=== PATIENT | female | born 1955 | race Caucasian/White ===

== ENCOUNTER 2020-11-16 14:31 | Inpatient (IN) | payer MEDICARE, OTHER ==
[~2020-11-16] VITALS: Ht 157.5 cm; Wt 88.0 kg
[~2020-11-16 14:31] MED LIST: ALBUTEROL2.5 MG/3 M NEB; ALDACTONE25 MG PO; ASPIR 8181 MG PO; COREG 3.125M3.125 MG PO; DIAMOX 250 MG250 MG PO; INVEGA6 MG PO; LASIX20 MG PO; LEVOTHYROXINE75 MCG PO; LISINOPRIL5 MG PO
[2020-11-16 15:28] LABS: HEMOGLOBIN 12.8 gm/dl (12.3-15.3); RED BLOOD COUNT 4.34 M/UL (4.00-5.10); WHITE BLOOD COUNT 8.1 K/UL (4.5-11.0)
[2020-11-16 16:51] LABS: BUN/CREATININE RATIO 29 (0-10)
[2020-11-16] MEDS ORDERED: PROAIR DIGIHAL90 MCG INH (17:58)
[2020-11-16] MEDS ORDERED: BUMETANIDE1 MG PO (17:59)
[2020-11-16] MEDS ORDERED: ELIQUIS5 MG PO (18:00)
[2020-11-16] MEDS ORDERED: DIVALPROEX SOD125 M1 PO (18:00)
[2020-11-16] MEDS ORDERED: ENTRESTO 24 MG1 EACH PO (18:01)
[2020-11-16] MEDS ORDERED: NOVOLOG 10100 UNITS/ INJ (18:02)
[2020-11-16] MEDS ORDERED: QUETIAPINE FUM100 MG PO (18:03)
[2020-11-16] MEDS ORDERED: METOPROLOL TART50 MG PO (18:03)
[2020-11-17 04:52] LABS: HEMOGLOBIN 12.1 gm/dl (12.3-15.3); RED BLOOD COUNT 4.21 M/UL (4.00-5.10)
[2020-11-17 05:25] LABS: BUN/CREATININE RATIO 30 (0-10)
[2020-11-18 04:41] LABS: HEMOGLOBIN 12.4 gm/dl (12.3-15.3); RED BLOOD COUNT 4.33 M/UL (4.00-5.10)
[2020-11-18 04:47] LABS: WHITE BLOOD COUNT 7.4 K/UL (4.5-11.0)
[2020-11-18 04:58] LABS: BUN/CREATININE RATIO 27 (0-10)
[2020-11-19 03:51] LABS: HEMOGLOBIN 12.3 gm/dl (12.3-15.3); RED BLOOD COUNT 4.27 M/UL (4.00-5.10); WHITE BLOOD COUNT 6.5 K/UL (4.5-11.0)
[2020-11-19 04:19] LABS: BUN/CREATININE RATIO 22 (0-10)
[2020-11-20 06:42] LABS: RED BLOOD COUNT 4.38 M/UL (4.00-5.10); WHITE BLOOD COUNT 5.9 K/UL (4.5-11.0)
[2020-11-21 02:34] LABS: HEMOGLOBIN 12.1 gm/dl (12.3-15.3); RED BLOOD COUNT 4.28 M/UL (4.00-5.10)
[2020-11-21 02:39] LABS: WHITE BLOOD COUNT 7.4 K/UL (4.5-11.0)
[2020-11-22 06:21] LABS: HEMOGLOBIN 12.6 gm/dl (12.3-15.3); RED BLOOD COUNT 4.62 M/UL (4.00-5.10); WHITE BLOOD COUNT 8.7 K/UL (4.5-11.0)
[2020-11-22 06:43] LABS: BUN/CREATININE RATIO 28 (0-10)
[2020-11-23 04:57] LABS: HEMOGLOBIN 12.3 gm/dl (12.3-15.3); RED BLOOD COUNT 4.31 M/UL (4.00-5.10); WHITE BLOOD COUNT 6.6 K/UL (4.5-11.0)
[2020-11-23 05:17] LABS: BUN/CREATININE RATIO 24 (0-10)
[2020-11-23] MEDS ORDERED: HYDRALAZINE HCL50 MG PO (12:55)
[2020-11-23] MEDS ORDERED: AMLODIPINE BESYL5 MG PO (12:55)
[2020-11-23] MEDS ORDERED: IPRAT-ALBUT 0.5-3 ML NEB (12:55)
[2020-11-23] MEDS ORDERED: ACETAZOLAMIDE250 MG PO (12:55)
[2020-11-23] MEDS ORDERED: BUMETANIDE1 MG PO (12:57)
== END 2020-11-23 17:23 | DRG 291 ==
LOC: ER1 14:31 → CDU 17:06 → MED SURG 4 17:06 → PROG CARE 11-17 15:35 → MED SURG 4 11-18 02:14
PROVIDERS: Emergency Medicine; ADMIT Internal Medicine
PROC: 5A09457 Assistance with Respiratory Ventilation, 24-96 Consecutive Hours, Continuous Positive Airway Pressure (ICD-10-PCS; principal; 2020-11-16)
DX: I13.0 Hypertensive heart and chronic kidney disease with heart failure and stage 1 through stage 4 chronic kidney disease, or unspecified chronic kidney disease (principal); J18.9 Pneumonia, unspecified organism; J96.21 Acute and chronic respiratory failure with hypoxia; J96.22 Acute and chronic respiratory failure with hypercapnia; G93.41 Metabolic encephalopathy; I50.23 Acute on chronic systolic (congestive) heart failure; E87.3 Alkalosis; E66.2 Morbid (severe) obesity with alveolar hypoventilation; Z20.822 Contact with and (suspected) exposure to COVID-19; I16.0 Hypertensive urgency; N18.30 Chronic kidney disease, stage 3 unspecified; E11.22 Type 2 diabetes mellitus with diabetic chronic kidney disease; L89.112 Pressure ulcer of right upper back, stage 2; E03.9 Hypothyroidism, unspecified; I48.0 Paroxysmal atrial fibrillation; F20.9 Schizophrenia, unspecified; I27.20 Pulmonary hypertension, unspecified; I08.1 Rheumatic disorders of both mitral and tricuspid valves; R53.81 Other malaise; G47.33 Obstructive sleep apnea (adult) (pediatric); E11.9 Type 2 diabetes mellitus without complications; Z79.01 Long term (current) use of anticoagulants; Z79.4 Long term (current) use of insulin; Z68.39 Body mass index [BMI] 39.0-39.9, adult
CPT/HCPCS: 36415; 36600; 71045; 80053; 82550; 82553; 82803; 82962; 83605; 83874; 83880; 84484; 85025; 85027; 87040; 87086; 92610; 93005; 94640; 94660; 94664; 94760; 96374; 96375; 97110-GP-CQ; 97161; 97167; 97530-GP-CQ; 99285; G0378; J0692; J1120; J1335; J1940; J2060; J2185; J2270; J3370; U0002

== ENCOUNTER 2020-12-13 13:31 | Inpatient (IN) | payer MEDICARE, OTHER ==
[~2020-12-13] VITALS: Ht 160 cm; Wt 45.4 kg
[~2020-12-13 13:31] MED LIST changes: +ACETAZOLAMIDE250 MG PO; +AMLODIPINE BESYL5 MG PO; +BUMETANIDE1 MG PO; +DIVALPROEX SOD125 M1 PO; +ELIQUIS5 MG PO; +ENTRESTO 24 MG1 EACH PO; +HYDRALAZINE HCL50 MG PO; +IPRAT-ALBUT 0.5-3 ML NEB; +METOPROLOL TART50 MG PO; +NOVOLOG 10100 UNITS/ INJ; +PROAIR DIGIHAL90 MCG INH; +QUETIAPINE FUM100 MG PO
[2020-12-13 14:56] LABS: HEMOGLOBIN 14.4 gm/dl (12.3-15.3); RED BLOOD COUNT 4.82 M/UL (4.00-5.10); WHITE BLOOD COUNT 10.8 K/UL (4.5-11.0)
[2020-12-13] MEDS ORDERED: CYPROHEPTADINE H4 MG PO (23:30)
[2020-12-13] MEDS ORDERED: ENTRESTO 24 MG1 EACH PO (23:41)
[2020-12-14 02:18] LABS: WHITE BLOOD COUNT 8.3 K/UL (4.5-11.0)
[2020-12-14 02:34] LABS: HEMOGLOBIN 11.9 gm/dl (12.3-15.3); RED BLOOD COUNT 4.08 M/UL (4.00-5.10)
[2020-12-17 03:48] LABS: HEMOGLOBIN 11.4 gm/dl (12.3-15.3); RED BLOOD COUNT 3.96 M/UL (4.00-5.10); WHITE BLOOD COUNT 6.2 K/UL (4.5-11.0)
[2020-12-17 04:04] LABS: BUN/CREATININE RATIO 20 (0-10)
[2020-12-19 07:43] LABS: BUN/CREATININE RATIO 11 (0-10)
--- NOTE | 2020-12-19 17:34 | NUR ---
12/19/20 0900 ORAL CARE DONE. LIP BALM APPLIED. PATIENT TOLERATED WELL.
[2020-12-20 09:06] LABS: BUN/CREATININE RATIO 14 (0-10)
[2020-12-21 08:56] LABS: RED BLOOD COUNT 3.29 M/UL (4.00-5.10); WHITE BLOOD COUNT 8.9 K/UL (4.5-11.0)
[2020-12-21 09:00] LABS: HEMOGLOBIN 9.2 gm/dl (12.3-15.3)
[2020-12-21 09:26] LABS: BUN/CREATININE RATIO 17 (0-10)
[2020-12-21] MEDS ORDERED: NOVOLOG 10100 UNITS/ INJ (14:56)
[2020-12-21] MEDS ORDERED: NYSTOP60 GM EXT (14:56)
--- NOTE | 2020-12-21 16:00 | NUR ---
RN NOTED PATIENT'S ARM TO BE EDEMATOUS. RN NOTIFIED MD WHO ORDERED ULTRASOUND OF EXTREMITY. MD LATER ORDERED NEURO CHECKS TO EXTREMITY. PATIENT'S ARM CONTINUES TO BE EDEMATOUS WITH RED AND PURPLE DISCOLORATION WELL. HARDENED AREA NOTED DEEP WITHIN RIGHT UPPER UNDER ARM, MD MADE AWARE. PATIENT DENIES PAIN AND DISCOMFORT. NO S/SX OF DISTRESS. CONTINUOUS TELEMETRY AND PULSE OX IN PLACE. BED LOCKED AND LOW. CALL LIGHT WITHIN REACH. BED ALARM ACTIVATED.
[2020-12-22 04:50] LABS: HEMOGLOBIN 9.3 gm/dl (12.3-15.3); RED BLOOD COUNT 3.27 M/UL (4.00-5.10); WHITE BLOOD COUNT 10.2 K/UL (4.5-11.0)
--- NOTE | 2020-12-23 15:00 | NUR ---
RN SPOKE WITH DR. DE ABOUT PATIENT'S ABILITY TO GIVE CONSENT FOR BLOOD TRANSFUSION. STATED THAT DR. VERAS ORDERED THE BLOOD AND SHE VERIFIED THAT IT WAS A MEDICAL NECESSITY. RN NOTIFIED LAB. PENDING NOTIFICATION FROM LAB OF BLOOD AVAILABILITY. TYPE AND CROSS OBTAINED THIS AM. PATIENT DISPLAYS NO S/SX OF PAIN, DISCOMFORT, OR DISTRESS. BED LOCKED AND LOW. CALL LIGHT WITHIN REACH. CONTINUOUS TELEMETRY AND PULSE OX IN PLACE PER ORDER.
[2020-12-24 06:56] LABS: RED BLOOD COUNT 3.09 M/UL (4.00-5.10); WHITE BLOOD COUNT 7.9 K/UL (4.5-11.0)
[2020-12-24 07:11] LABS: BUN/CREATININE RATIO 49 (0-10)
--- NOTE | 2020-12-24 17:22 | NUR ---
REPORT CALLED TO ERNESTO AT [facility].
== END 2020-12-24 17:00 | DRG 871 ==
LOC: ER1 13:31 → CCU 17:55 → MED SURG 4 17:55 → CDU 17:55 → CCU 21:50 → MED SURG 4 12-16 10:15
PROVIDERS: Emergency Medicine; Internal Medicine; Internal Medicine Nephrology; Physician Assistant Medical; ADMIT Internal Medicine
PROC: 0BH18EZ Insertion of Endotracheal Airway into Trachea, Via Natural or Artificial Opening Endoscopic (ICD-10-PCS; principal; 2020-12-13)
PROC: 5A1945Z Respiratory Ventilation, 24-96 Consecutive Hours (ICD-10-PCS; 2020-12-13)
PROC: 3E033XZ Introduction of Vasopressor into Peripheral Vein, Percutaneous Approach (ICD-10-PCS; 2020-12-13)
PROC: B24BZZZ Ultrasonography of Heart with Aorta (ICD-10-PCS; 2020-12-15)
PROC: 30233N1 Transfusion of Nonautologous Red Blood Cells into Peripheral Vein, Percutaneous Approach (ICD-10-PCS; 2020-12-24)
DX: A41.9 Sepsis, unspecified organism (principal); J18.9 Pneumonia, unspecified organism; J96.21 Acute and chronic respiratory failure with hypoxia; J96.22 Acute and chronic respiratory failure with hypercapnia; I50.23 Acute on chronic systolic (congestive) heart failure; N17.0 Acute kidney failure with tubular necrosis; G93.41 Metabolic encephalopathy; R65.21 Severe sepsis with septic shock; I21.A1 Myocardial infarction type 2; I42.9 Cardiomyopathy, unspecified; E66.2 Morbid (severe) obesity with alveolar hypoventilation; E87.2 Acidosis; E87.3 Alkalosis; I13.0 Hypertensive heart and chronic kidney disease with heart failure and stage 1 through stage 4 chronic kidney disease, or unspecified chronic kidney disease; Q32.1 Other congenital malformations of trachea; Z20.822 Contact with and (suspected) exposure to COVID-19; E87.6 Hypokalemia; I48.0 Paroxysmal atrial fibrillation; N18.9 Chronic kidney disease, unspecified; E87.5 Hyperkalemia; E78.5 Hyperlipidemia, unspecified; E11.22 Type 2 diabetes mellitus with diabetic chronic kidney disease; F20.9 Schizophrenia, unspecified; R80.9 Proteinuria, unspecified; I27.20 Pulmonary hypertension, unspecified; I08.1 Rheumatic disorders of both mitral and tricuspid valves; E86.9 Volume depletion, unspecified; Z79.82 Long term (current) use of aspirin; Z79.01 Long term (current) use of anticoagulants; Z79.899 Other long term (current) drug therapy; Z98.890 Other specified postprocedural states; Z79.890 Hormone replacement therapy
CPT/HCPCS: ECHO; 31500; 36415; 36430; 36556; 36600; 43752; 51701; 70450; 71045; 73218; 80048; 80053; 80202; 82436; 82550; 82553; 82570; 82803; 82962; 83036; 83605; 83735; 83880; 84100; 84132; 84133; 84156; 84300; 84484; 85018; 85025; 85027; 86850; 86900; 86901; 86920; 87040; 87070; 87205; 89050; 92526; 92610; 93005; 93306; 93971; 94002; 94003; 94640; 94660; 94760; 96365; 96367; 96375; 97110-GP-CQ; 97161; 97530; 99291; C1751; C9113; J0171; J0330; J0360; J0461; J0692; J1120; J1265; J1335; J1650; J1940; J2250; J2310; J2704; J3370; J3480; J7030; J7040; J7060; J7070; P9016; P9047; U0002

== ENCOUNTER 2021-01-20 04:59 | Inpatient (IN) | payer MEDICARE, OTHER ==
[~2021-01-20] VITALS: Ht 157.5 cm; Wt 88.9 kg
[~2021-01-20 04:59] MED LIST changes: +CYPROHEPTADINE H4 MG PO; +NYSTOP60 GM EXT
[2021-01-20 05:46] LABS: RED BLOOD COUNT 5.03 M/UL (4.00-5.10); WHITE BLOOD COUNT 29.3 K/UL (4.5-11.0)
[2021-01-20 06:01] LABS: BUN/CREATININE RATIO 34 (0-10)
[2021-01-20] MEDS ORDERED: INSULIN AS100 UNIT/2 SQ (11:16)
--- NOTE | 2021-01-20 18:09 | NUR ---
01/20/21 1800 FRANCISCO J SCDS ON
[2021-01-21 02:06] LABS: ACINETOBACTER BAUMANNII Not Detected (Negative); CANDIDA ALBICANS Not Detected (Negative); CANDIDA KRUSEI Not Detected (Negative); CANDIDA TROPICALIS Not Detected (Negative); ENTEROCOCCUS Not Detected (Negative); ESCHERICHIA COLI Not Detected (Negative); HAEMOPHILUS INFLUENZAE Not Detected (Negative); KLEBSIELLA OXYTOCA Not Detected (Negative); KLEBSIELLA PNEUMONIAE Not Detected (Negative); KPC-CARBAPENEM-RESISTANCE GENE Not Detected (Negative); PROTEUS Not Detected (Negative); PSEUDOMONAS AERUGINOSA Not Detected (Negative); SERRATIA MARCESANS Not Detected (Negative); STAPHYLOCOCCUS AUREUS Not Detected (Negative); STREP AGALACTIAE (GROUP B) Not Detected (Negative); STREP PYOGENES (GROUP A) Not Detected (Negative); STREPTOCOCCUS Not Detected (Negative); vanA/B (VANCOMYCIN RESIST GENE Not Detected (Negative)
[2021-01-21 02:07] LABS: mecA (METHICILLIN RESIST GENE DETECTED (Negative)
[2021-01-21 02:08] LABS: STAPHYLOCOCCUS DETECTED (Negative)
[2021-01-21 05:08] LABS: HEMOGLOBIN 12.5 gm/dl (12.3-15.3); RED BLOOD COUNT 4.09 M/UL (4.00-5.10); WHITE BLOOD COUNT 16.2 K/UL (4.5-11.0)
[2021-01-21 15:51] LABS: ADENOVIRUS F 40/41 Not Detected (Negative); ASTROVIRUS Not Detected (Negative); CAMPYLOBACTER Not Detected (Negative); CLOSTRIDIUM DIFFICILE TOX A/B Not Detected (Negative); CRYPTOSPORIDIUM Not Detected (Negative); E.COLI 0157 Not Detected (Negative); ENTAMOEBA HISTOLYTICA Not Detected (Negative); ENTEROAGGREGATIVE E.COLI (EAEC Not Detected (Negative); ENTEROPATHOGENIC E.COLI (EPEC) Not Detected (Negative); ENTEROTOXIGENIC E.COLI (ETEC) Not Detected (Negative); GIARDIA LAMBLIA Not Detected (Negative); NOROVIRUS GI/GII Not Detected (Negative); PLESIOMONAS SHIGELLOIDES Not Detected (Negative); ROTOVIRUS A Not Detected (Negative); SALMONELLA Not Detected (Negative); SAPOVIRUS Not Detected (Negative); SHIG/ENTEROINVAS.ECOLI (EIEC) Not Detected (Negative); SHIGA-LIK TOX.PRO.E.COLI (STEC Not Detected (Negative); VIBRIO Not Detected (Negative); VIBRIO CHOLERAE Not Detected (Negative); YERSINIA ENTEROCOLITICA Not Detected (Negative)
[2021-01-22 03:31] LABS: HEMOGLOBIN 10.7 gm/dl (12.3-15.3)
[2021-01-22 03:34] LABS: RED BLOOD COUNT 3.51 M/UL (4.00-5.10)
--- NOTE | 2021-01-22 05:29 | NUR ---
NOTIFIED DR THOMPSON THAT PTS POTASSIUM IS 3.1 AND SHE HAS NO REPLACEMENT ORDERS.
[2021-01-22 19:36] LABS: HEMOGLOBIN 10.8 gm/dl (12.3-15.3); RED BLOOD COUNT 3.52 M/UL (4.00-5.10); WHITE BLOOD COUNT 11.8 K/UL (4.5-11.0)
[2021-01-23 04:00] LABS: HEMOGLOBIN 11.4 gm/dl (12.3-15.3); RED BLOOD COUNT 3.69 M/UL (4.00-5.10); WHITE BLOOD COUNT 12.2 K/UL (4.5-11.0)
[2021-01-24 03:39] LABS: HEMOGLOBIN 11.2 gm/dl (12.3-15.3); WHITE BLOOD COUNT 9.5 K/UL (4.5-11.0)
[2021-01-24 04:04] LABS: RED BLOOD COUNT 3.65 M/UL (4.00-5.10)
[2021-01-25 03:11] LABS: HEMOGLOBIN 10.9 gm/dl (12.3-15.3); RED BLOOD COUNT 3.56 M/UL (4.00-5.10); WHITE BLOOD COUNT 9.9 K/UL (4.5-11.0)
[2021-01-26 02:34] LABS: HEMOGLOBIN 11.5 gm/dl (12.3-15.3); RED BLOOD COUNT 3.78 M/UL (4.00-5.10); WHITE BLOOD COUNT 10.5 K/UL (4.5-11.0)
[2021-01-27 03:07] LABS: HEMOGLOBIN 11.1 gm/dl (12.3-15.3); RED BLOOD COUNT 3.66 M/UL (4.00-5.10); WHITE BLOOD COUNT 9.5 K/UL (4.5-11.0)
--- NOTE | 2021-01-28 14:06 | NUR ---
REPORT GIVEN TO ANAHI ON MED SURG 4
[2021-01-29 06:47] LABS: HEMOGLOBIN 11.2 gm/dl (12.3-15.3); RED BLOOD COUNT 3.68 M/UL (4.00-5.10); WHITE BLOOD COUNT 8.9 K/UL (4.5-11.0)
[2021-01-29] MEDS ORDERED: LEVOTHYROXINE50 MCG PO (11:29)
== END 2021-01-29 16:56 | DRG 871 ==
LOC: ER1 04:59 → CDU 10:47 → CCU 10:47 → PROG CARE 10:47 → CCU 13:14 → PROG CARE 01-21 15:32 → MED SURG 4 01-28 14:28
PROVIDERS: Emergency Medicine; Internal Medicine Infectious Disease; Internal Medicine Nephrology; Physician Assistant; ADMIT Internal Medicine
PROC: 3E033XZ Introduction of Vasopressor into Peripheral Vein, Percutaneous Approach (ICD-10-PCS; principal; 2021-01-20)
DX: A41.89 Other specified sepsis (principal); J69.0 Pneumonitis due to inhalation of food and vomit; N17.0 Acute kidney failure with tubular necrosis; R65.21 Severe sepsis with septic shock; G93.41 Metabolic encephalopathy; J18.9 Pneumonia, unspecified organism; A09 Infectious gastroenteritis and colitis, unspecified; E87.2 Acidosis; E87.1 Hypo-osmolality and hyponatremia; I50.22 Chronic systolic (congestive) heart failure; F20.9 Schizophrenia, unspecified; I11.0 Hypertensive heart disease with heart failure; E86.0 Dehydration; E11.9 Type 2 diabetes mellitus without complications; E83.51 Hypocalcemia; E78.5 Hyperlipidemia, unspecified; E87.5 Hyperkalemia; E66.01 Morbid (severe) obesity due to excess calories; E83.42 Hypomagnesemia; E03.9 Hypothyroidism, unspecified; E87.6 Hypokalemia; I48.0 Paroxysmal atrial fibrillation; Z79.01 Long term (current) use of anticoagulants; Z87.59 Personal history of other complications of pregnancy, childbirth and the puerperium; Z68.30 Body mass index [BMI] 30.0-30.9, adult
CPT/HCPCS: 36415; 36600; 71045; 71250; 80048; 80053; 80202; 81001; 82272; 82550; 82553; 82803; 82962; 83605; 83690; 83735; 83874; 83880; 84100; 84132; 84439; 84443; 84484; 85025; 85610; 86140; 86850; 86900; 86901; 87040; 87077; 87086; 87150; 87186; 87507; 93005; 96365; 96366; 96375; 96376; 97110-GP-CQ; 97162; 99285; C9113; J0692; J1650; J2405; J2543; J3370; J3475; J7030; J7070; P9047; U0002

== ENCOUNTER → 2021-05-10 | Outpatient (CLI) | payer MEDICARE, OTHER ==
[~2021-05-10] MED LIST changes: +INSULIN AS100 UNIT/2 SQ; +LEVOTHYROXINE50 MCG PO
== END ==
LOC: RAD 08:30
DX: J69.0 Pneumonitis due to inhalation of food and vomit (principal)
CPT/HCPCS: 74230; 92611-GN